=== PATIENT | female | born 1975 | race Hispanic/Latino ===

== ENCOUNTER 2017-03-18 11:29 | Emergency (ER) | payer OTHER ==
[2017-03-18] MEDS ORDERED: SODIUM CHLORIDE 0.9% 1000ML 1,000 ML IV ONE (11:46)
[2017-03-18] MEDS ORDERED: KETOROLAC TROMETHAMINE 30MG/ML ONE (11:46)
[2017-03-18 12:25] LABS: BASOPHILS % (AUTO) 0.7 % (0.0-5.0); HEMATOCRIT 41.3 % (36-48); LYMPHOCYTES % (AUTO) 29.6 % (21.0-51.0); MEAN CORPUSCULAR HEMOGLOBIN 31.9 pg (27.0-33.0); MEAN CORPUSCULAR HGB CONC 34.1 g/dL (32.0-36.0); MEAN CORPUSCULAR VOLUME 93.6 fL (79-99); MONOCYTES % (AUTO) 6.5 % (3.0-13.0); NEUTROPHILS % (AUTO) 61.2 % (40.0-77.0); PLATELET COUNT (AUTO) 296 K/uL (130-400); RED BLOOD CELL COUNT(AUTO) 4.41 MIL/uL (4.00-5.50); RED CELL DISTRIBUTION WIDTH 12.9 % (11.0-15.5); WHITE BLOOD COUNT (AUTO) 7.1 K/uL (4.8-10.8)
[2017-03-18 12:29] LABS: APPEARANCE,URINE Cloudy (CLEAR); BILIRUBIN,URINE Negative (NEGATIVE); COLOR,URINE Yellow (YELLOW); GLUCOSE, URINE (UA) Negative (NEGATIVE); KETONES,URINE Negative (NEGATIVE); LEUKOCYTE ESTERASE ,URINE Negative (NEGATIVE); NITRATE,URINE Negative (NEGATIVE); OCCULT BLOOD,URINE Negative (NEGATIVE); PROTEIN,URINE Negative (NEGATIVE)
[2017-03-18 12:36] LABS: BACTERIA,URINE Rare /HPF (None Seen); SQUAMOUS EPITHELIAL CELL,UR Rare /LPF (0-2); WBC,URINE 0-1 /HPF (0-1)
[2017-03-18 13:28] LABS: CREATININE 0.9 mg/dL (0.5-1.5); POTASSIUM 3.5 mmol/L (3.5-5.1)
[2017-03-18 13:32] LABS: ALBUMIN 4.2 g/dL (3.5-5.0); BILIRUBIN,TOTAL 0.5 mg/dL (0.2-1.0); TOTAL PROTEIN, SERUM 8.2 g/dL (6.0-8.3)
== END 2017-03-18 13:02 | disposition home or self-care (01) ==
LOC: EDH 11:29
DX: N83.291 Other ovarian cyst, right side (principal); Z90.710 Acquired absence of both cervix and uterus; Z98.890 Other specified postprocedural states
CPT/HCPCS: 36415; 74176; 80053; 81001; 85025; 96361; 96374; 99285; J1885; J7030

== ENCOUNTER 2019-01-12 14:24 | Emergency (ER) | payer OTHER ==
[2019-01-12] MEDS ORDERED: CEFTRIAXONE SODIUM 2 GM VIAL ONE (15:19)
[2019-01-12 15:20] LABS: BASOPHILS % (AUTO) 0.4 % (0.0-5.0); EOSINOPHILS % (AUTO) 0.2 % (0.0-8.0); HEMATOCRIT 40.7 % (36-48); MEAN CORPUSCULAR HEMOGLOBIN 31.7 pg (27.0-33.0); MEAN CORPUSCULAR HGB CONC 33.9 g/dL (32.0-36.0); MEAN CORPUSCULAR VOLUME 93.3 fL (79-99); MONOCYTES % (AUTO) 5.3 % (3.0-13.0); NEUTROPHILS % (AUTO) 80.1 % (40.0-77.0); PLATELET COUNT (AUTO) 271 K/uL (130-400); RED BLOOD CELL COUNT(AUTO) 4.36 MIL/uL (4.00-5.50); RED CELL DISTRIBUTION WIDTH 12.7 % (11.0-15.5); WHITE BLOOD COUNT (AUTO) 10.1 K/uL (4.8-10.8)
[2019-01-12] MEDS ORDERED: SODIUM CHLORIDE 0.9% 1000ML 2,000 ML IV ONE (15:20)
[2019-01-12 15:34] LABS: CARBON DIOXIDE 26 mmol/L (21-32); CHLORIDE 105 mmol/L (101-111); GLOMERULAR FILTR. RATE CALC 64 mL/min (>60); GLUCOSE,RANDOM 102 mg/dL (70-105); POTASSIUM 3.5 mmol/L (3.5-5.1); SODIUM SERUM 141 mmol/L (136-145); UREA NITROGEN, BLOOD 15 mg/dL (7-18)
[2019-01-12 15:35] LABS: INR 1.02 (0.85-1.15); PARTIAL THROMBOPLASTIN TIME 26.1 SEC (26.3-35.5); PROTHROMBIN TIME 10.7 SEC (9.6-11.6)
[2019-01-12 15:46] LABS: ALANINE AMINOTRANSFERASE 47 U/L (12-78); ALBUMIN 3.6 g/dL (3.5-5.0); ASPARTATE AMINOTRANSFERASE 31 U/L (10-37); BILIRUBIN,TOTAL 1.1 mg/dL (0.2-1.0); CREATINE KINASE, TOTAL 133 U/L (21-232); MYOGLOBIN 72 ng/mL (10-92); TOTAL PROTEIN, SERUM 7.4 g/dL (6.0-8.3); TROPONIN I < 0.04 ng/mL (0.00-0.06)
[2019-01-12] MEDS ORDERED: ACETAMINOPHEN EXTRA STRENGTH 500 MG TABLET ONE (15:49)
[2019-01-12 16:11] LABS: APPEARANCE,URINE Clear (CLEAR); BILIRUBIN,URINE Negative (NEGATIVE); COLOR,URINE Dark Yellow (YELLOW); GLUCOSE, URINE (UA) Negative (NEGATIVE); KETONES,URINE Trace mg/dL (NEGATIVE); LEUKOCYTE ESTERASE ,URINE Negative (NEGATIVE); NITRATE,URINE Negative (NEGATIVE); OCCULT BLOOD,URINE Negative (NEGATIVE); PH,URINE 5.5 (5.0-8.0); PROTEIN,URINE Negative (NEGATIVE)
[2019-01-12 16:30] LABS: BACTERIA,URINE Few /HPF (None Seen); MUCUS,URINE Moderate LPF (None Seen); SQUAMOUS EPITHELIAL CELL,UR 0-2 /HPF (0-2); WBC,URINE 0-1 /HPF (0-1)
== END 2019-01-12 17:39 | disposition home or self-care (01) ==
LOC: EDH 14:24
DX: K52.9 Noninfective gastroenteritis and colitis, unspecified (principal); E86.0 Dehydration; Z90.710 Acquired absence of both cervix and uterus
CPT/HCPCS: 36415; 71045; 80053; 81001; 81025; 82550; 83605; 83874; 84145; 84484; 84702; 85025; 85610; 85730; 87040; 87088; 93005; 96361; 96374; 99285; J0696; J7030

== ENCOUNTER 2019-03-10 16:13 | Observation (INO) | payer OTHER ==
[~2019-03-10] VITALS: Ht 162.6 cm; Wt 93.4 kg
[2019-03-10] MEDS ORDERED: ASPIRIN 325 MG TABLET ONE (16:33)
[2019-03-10 16:47] LABS: APPEARANCE,URINE Clear (CLEAR); BILIRUBIN,URINE Negative (NEGATIVE); COLOR,URINE Yellow (YELLOW); GLUCOSE, URINE (UA) Negative (NEGATIVE); KETONES,URINE Negative (NEGATIVE); LEUKOCYTE ESTERASE ,URINE Negative (NEGATIVE); NITRATE,URINE Negative (NEGATIVE); OCCULT BLOOD,URINE Negative (NEGATIVE); PH,URINE 5.5 (5.0-8.0); PROTEIN,URINE Negative (NEGATIVE)
[2019-03-10 16:55] LABS: AMPHET/METH SCREEN,URINE NEGATIVE (NEGATIVE); BARBITURATE SCREEN, URINE NEGATIVE (NEGATIVE); BENZODIAZEPINES SCREEN,URINE NEGATIVE (NEGATIVE); CANNABINOID SCREEN,URINE NEGATIVE (NEGATIVE); COCAINE SCREEN,URINE NEGATIVE (NEGATIVE); OPIATE SCREEN,URINE NEGATIVE (NEGATIVE); PHENCYCLIDINE SCREEN,URINE NEGATIVE (NEGATIVE)
[2019-03-10 16:57] LABS: BASOPHILS % (AUTO) 0.8 % (0.0-5.0); EOSINOPHILS % (AUTO) 2.5 % (0.0-8.0); HEMATOCRIT 41.5 % (36-48); LYMPHOCYTES % (AUTO) 30.9 % (21.0-51.0); MEAN CORPUSCULAR VOLUME 93.9 fL (79-99); NEUTROPHILS % (AUTO) 57.6 % (40.0-77.0); PLATELET COUNT (AUTO) 340 K/uL (130-400); RED BLOOD CELL COUNT(AUTO) 4.42 MIL/uL (4.00-5.50); RED CELL DISTRIBUTION WIDTH 11.9 % (11.0-15.5); WHITE BLOOD COUNT (AUTO) 9.2 K/uL (4.8-10.8)
[2019-03-10 16:59] LABS: CREATININE 0.9 mg/dL (0.5-1.5); POTASSIUM 3.4 mmol/L (3.5-5.1)
[2019-03-10 17:02] LABS: INR 0.94 (0.85-1.15); PARTIAL THROMBOPLASTIN TIME 28.4 SEC (26.3-35.5); PROTHROMBIN TIME 9.9 SEC (9.6-11.6)
[2019-03-10 17:04] LABS: ALBUMIN 3.9 g/dL (3.5-5.0); BILIRUBIN,TOTAL 0.4 mg/dL (0.2-1.0)
[2019-03-10 17:42] LABS: B-TYPE NATRIURETIC PEPTIDE 29 pg/mL (0-100)
[2019-03-10] MEDS ORDERED: METOPROLOL TARTRATE 1 MG/ML 5ML VIAL IV ONE (18:23)
[2019-03-10] MEDS ORDERED: HYDRALAZINE HCL 20 MG/ML VIAL IV PRN (21:30)
[2019-03-10] MEDS ORDERED: LIDOCAINE HCL-MPF 1% 2ML VIAL IV PRN (21:30)
[2019-03-10] MEDS ORDERED: POTASSIUM CHLORIDE 10% ELIXIR 20 MEQ/15 ML UDCUP PO PRN (21:30)
[2019-03-10] MEDS ORDERED: POTASSIUM CHLORIDE 20MEQ/100ML 100 ML IV PRN (21:30)
[2019-03-10] MEDS ORDERED: POTASSIUM CHLORIDE 20 MEQ ERTAB PO PRN (21:30)
[2019-03-11] MEDS ORDERED: POTASSIUM CHLORIDE 20 MEQ ERTAB PO ONE (01:58)
[2019-03-11 05:04] LABS: BASOPHILS % (AUTO) 0.7 % (0.0-5.0); EOSINOPHILS % (AUTO) 2.4 % (0.0-8.0); HEMATOCRIT 39.3 % (36-48); LYMPHOCYTES % (AUTO) 34.9 % (21.0-51.0); MEAN CORPUSCULAR HEMOGLOBIN 30.5 pg (27.0-33.0); MEAN CORPUSCULAR HGB CONC 32.8 g/dL (32.0-36.0); MEAN CORPUSCULAR VOLUME 92.9 fL (79-99); MONOCYTES % (AUTO) 6.6 % (3.0-13.0); NEUTROPHILS % (AUTO) 55.2 % (40.0-77.0); PLATELET COUNT (AUTO) 239 K/uL (130-400); RED BLOOD CELL COUNT(AUTO) 4.23 MIL/uL (4.00-5.50); RED CELL DISTRIBUTION WIDTH 11.9 % (11.0-15.5); WHITE BLOOD COUNT (AUTO) 8.9 K/uL (4.8-10.8)
[2019-03-11 05:13] LABS: HEMOGLOBIN A1C 5.6 % (4.0-6.0)
[2019-03-11 05:35] LABS: ALBUMIN 3.3 g/dL (3.5-5.0); BILIRUBIN,TOTAL 0.6 mg/dL (0.2-1.0); CREATININE 0.9 mg/dL (0.5-1.5); THYROID STIMULATING HORMONE 2.83 uIU/mL (0.36-3.74)
[2019-03-11 07:50] VITALS: BP 127/73
[2019-03-11] MEDS ORDERED: FAMOTIDINE 20MG TAB 20 MG TAB PO SCH (09:00)
[2019-03-11] MEDS ORDERED: ASPIRIN 81MG TAB.CHEW PO SCH (09:00)
== END 2019-03-11 11:45 | disposition home or self-care (01) ==
LOC: EDH 16:13 → EDHIP 21:17 → 4CH 03-11 08:25
PROVIDERS: ADMIT Internal Medicine; ATTEND Internal Medicine
DX: R07.2 Precordial pain (principal); I10 Essential (primary) hypertension; E78.5 Hyperlipidemia, unspecified; E66.9 Obesity, unspecified; Z90.710 Acquired absence of both cervix and uterus; Z68.35 Body mass index [BMI] 35.0-35.9, adult
CPT/HCPCS: 36415 ×2; 71045; 80053 ×2; 80061; 80305; 81003; 82550; 83036; 83880; 84443; 84484 ×3; 85025 ×2; 85610; 85730; 93005 ×2; 99291; G0378 ×4; J3490

== ENCOUNTER → 2019-05-04 | Outpatient (CLI) | payer OTHER | END | disposition home or self-care (01) | LOC: SHCH 08:46 | PROVIDERS: ATTEND Internal Medicine Cardiovascular Disease | DX: R00.2 Palpitations (principal); I49.3 Ventricular premature depolarization | CPT/HCPCS: 93306 ==

== ENCOUNTER 2023-08-21 13:51 | Emergency (ER) | payer BC, OTHER | END 2023-08-21 13:59 | disposition left against medical advice (07) | LOC: EDH 13:51 | DX: M79.604 Pain in right leg (principal); Z53.21 Procedure and treatment not carried out due to patient leaving prior to being seen by health care provider ==

== ENCOUNTER 2023-08-21 14:23 | Emergency (ER) | payer BC ==
[~2023-08-21] VITALS: Ht 160 cm; Wt 90.7 kg
[2023-08-21 14:26] VITALS: BP 200/99; PULSE 63; RESP 18
== END 2023-08-21 16:28 | disposition home or self-care (01) ==
LOC: EDH 14:23
DX: M79.661 Pain in right lower leg (principal)
CPT/HCPCS: 93970